=== PATIENT | female | born 1990 | race Caucasian/White ===

== ENCOUNTER 2016-11-03 09:07 | Emergency (ER) | payer OTHER ==
[2016-11-03 09:11] VITALS: O2SAT 100
[2016-11-03 10:07] LABS: BASO % 0.4 % (0.0-2.0); EOS # 0.1 K/uL (0.0-0.7); EOS % 0.9 % (0.0-4.0); HEMATOCRIT 37.2 % (34.0-47.0); LYMPH # 1.9 K/uL (1.0-4.3); LYMPH % 24.2 % (20.0-40.0); MEAN CELL VOLUME 71.2 fL (81.0-99.0); MEAN CORPUSCULAR HEMOGLOBIN 22.3 pg (27.0-31.0); MEAN CORPUSCULAR HGB CONC 31.3 g/dL (33.0-37.0); MEAN PLATELET VOLUME 8.6 fL (7.2-11.7); MONO # 0.3 K/uL (0.0-0.8); MONO % 3.5 % (0.0-10.0); RED CELL DISTRIBUTION WIDTH 16.3 % (11.5-14.5)
[2016-11-03 10:21] LABS: RBC URINE 16 /hpf (0-3); URINE BACTERIA RARE (<OCC); URINE BILIRUBIN NEGATIVE (NEGATIVE); URINE BLOOD 1+ (NEGATIVE); URINE COLOR Yellow (YELLOW); URINE GLUCOSE (UA) 3+ mg/dL (Normal); URINE KETONE TRACE mg/dL (NEGATIVE); URINE LEUKOCYTE ESTERASE NEG Leu/uL (Negative); URINE PROTEIN NEGATIVE (NEGATIVE); URINE UROBILINOGEN NORMAL mg/dL (0.2-1.0); WBC URINE 1 /hpf (0-5)
[2016-11-03 10:33] LABS: CHLORIDE 98 mmol/L (98-107); POTASSIUM 3.6 mmol/L (3.6-5.2); SODIUM 140 mmol/L (132-148)
[2016-11-03 10:36] LABS: BLOOD UREA NITROGEN 11 mg/dL (7-17); CARBON DIOXIDE 22 mmol/L (22-30); GFR AFRICAN-AMERICAN > 60; GLUCOSE,RANDOM 258 mg/dL (65-105)
[2016-11-03 10:37] LABS: CALCIUM 9.7 mg/dl (8.6-10.4)
--- NOTE | 2016-11-03 10:45 | US ---
Indication: Vaginal spotting Comparison: None available Technique: Transvaginal pelvic ultrasound. Findings: 9.1 x 5.1 x 7.2 cm. Anteverted. Cervix length measures approximately 3.3 cm. Small cystic focus presumed to reflect intrauterine gestational sac measures approximately 5 mm, too small for gestational age calculation. No evidence of yolk sac or pole at this time. The right ovary measures 2.6 x 1.6 x 2.1 cm and contains a 0.7 x 0.6 x 0.6 cm anechoic avascular focus consistent with a cyst. The left ovary measures 2.2 x 1.6 x 3.4 cm. Blood flow was demonstrated to both ovaries. Impression: Small cystic focus presumed to reflect intrauterine gestational sac measures approximately 5 mm, too small for gestational age calculation. No evidence of yolk sac or pole at this time. Recommend clinical correlation including quantitative beta HCG. 0.7 x 0.6 x 0.6 cm anechoic avascular focus consistent with a right renal cyst.
[2016-11-03] MEDS ORDERED: Sodium Chloride 0.9% 1,000 ML IV ONE (11:11)
[2016-11-03] MEDS ORDERED: Sodium Chloride 0.9% 1,000 ML ONE (11:16)
--- NOTE | 2016-11-03 11:27 | C.PDOC ---
History Of Present Illness 26 yo female , LNMP 09/13/16, (+) test at home, come in for evaluation of diffuse lower abdominal cramping pain for past days associated with bloody vaginal spotting. Pt sts, pain is worsening over time. Otherwise, pt denies fever, chills, recent illness, sore throat, neck pain, CP, SOB, dyspnea, diaphoresis, palpitation, N/V, UTI sx. Ambulate to ED for evaluation, not in any apparent distress. Time Seen by Provider: 11/03/16 09:20 Chief Complaint (Nursing): Abdominal Pain History Per: Patient Past Medical History Reviewed: Historical Data, Nursing Documentation, Vital Signs Vital Signs: Last Vital Signs Temp 98.3 F 11/03/16 12:20 Pulse 106 H 11/03/16 12:20 Resp 20 11/03/16 12:20 BP 95/62 L 11/03/16 12:20 Pulse Ox 100 11/03/16 12:20 - Medical History PMH: No Chronic Diseases Surgical History: No Surg Hx Family History: States: No Known Family Hx - Social History Hx Alcohol Use: No Hx Substance Use: No - Immunization History Hx Tetanus Toxoid Vaccination: Yes Hx Pneumococcal Vaccination: Yes Review Of Systems Except As Marked, All Systems Reviewed And Found Negative. Constitutional: Negative for: Fever, Chills Eyes: Negative for: Vision Change ENT: Negative for: Throat Pain, Throat Swelling Cardiovascular: Negative for: Chest Pain, Palpitations, Light Headedness Respiratory: Negative for: Cough, Shortness of Breath, Wheezing Gastrointestinal: Positive for: Abdominal Pain. Negative for: Nausea, Vomiting , Diarrhea Genitourinary: Positive for: Vaginal Bleeding. Negative for: Dysuria, Frequency , Incontinence Musculoskeletal: Negative for: Neck Pain, Back Pain Skin: Negative for: Rash Neurological: Negative for: Weakness, Numbness, Altered Mental Status, Headache Physical Exam - Physical Exam Appears: Well, No Acute Distress Skin: Normal Color, Warm, Dry, No Rash Eye(s): bilateral: PERRL Nose: No Flaring Oral Mucosa: Moist Throat: No Drooling Neck: Trachea Midline, Supple Cardiovascular: Rhythm Regular, No JVD Respiratory: No Decreased Breath Sounds, No Accessory Muscle Use, No Rales, No Rhonchi, No Stridor, No Wheezing Gastrointestinal/Abdominal: Soft, Tenderness (mild suprapubic tenderness.), No Organomegaly, No Distention, No Guarding, No Rebound Back: No CVA Tenderness Extremity: No Pedal Edema, No Deformity Neurological/Psych: Oriented x3, Normal Speech ED Course And Treatment - Laboratory Results Result Diagrams: 11/03/16 09:57 11/03/16 09:57 Lab Interpretation: Normal O2 Sat by Pulse Oximetry: 100 Pulse Ox Interpretation: Normal - CT Scan/US Transvaginal US Other Rad Studies (CT/US): Radiology Report Reviewed CT/US Interpretation: atient Name / ID : LOULOU LOPEZ / [id number]. Exam Date : 11/03/2016 09:55:27 ( Approved ). Study Comment : Sex / Age : F / 26Y. Creator : Jennifer Ball MD. Dictator : Window And Siding Craftsman : Concrete Mixer Operator : Jennifer Ball MD. Approver2 : Report Date : 11/03/2016 10: 43:38. My Comment : . Indication: Vaginal spotting. Comparison: None available. Technique: Transvaginal pelvic ultrasound. Findings: 9.1 x 5.1 x 7.2 cm. Anteverted. Cervix length measures approximately 3.3 cm. Small cystic focus presumed to reflect intrauterine gestational sac measures approximately 5 mm, too small for gestational age calculation. No evidence of yolk sac or pole at this time. The right ovary measures 2.6 x 1.6 x 2.1 cm and contains a 0.7 x 0.6 x 0.6 cm anechoic avascular focus consistent with a cyst. The left ovary measures 2.2 x 1.6 x 3.4 cm. Blood flow was demonstrated to both ovaries. Impression: Small cystic focus presumed to reflect intrauterine gestational sac measures approximately 5 mm, too small for gestational age calculation. No evidence of yolk sac or pole at this time. Recommend clinical correlation including quantitative beta HCG. 0.7 x 0.6 x 0.6 cm anechoic avascular focus consistent with a right renal cyst. Progress Note: On re-evaluation, pt is afebrile, hemodynamicaly stable. Non- toxic. AMbulatory in ED with stable gait. Neck: Supple, (-) JVD. Lungs: CTA B /L, BS equal B/L. ABd: benign. Back: (-) CVA tenderness. Diagnostics review, no acute abnormalities except slight hyperglycemia. Pt denies previous hx of DM or gestational DM. Blood type A positive, ab negative. Beta quant c/w with US findings of early 5-6 wks. Results review and discussed with pt. Pt has clinical findings c/w threatened miscarriage. Pt advised and ref. to f/u with OB in 1-2 days for re-eval.,. return if any new changes. Disposition Counseled Patient/Family Regarding: Studies Performed, Diagnosis, Need For Followup, Rx Given - [facility]position [facility] Disposition: HOME/ ROUTINE Disposition Time: 11:33 Condition: STABLE Additional Instructions: Encourage fluids Vitamins Avoid sweet food Follow up with OB in 1-2 days for re-evaluation. Return to ED if any worsening or new changes. Prescriptions: Multivit/Folic Acid/I [ Plus] 1 tab PO DAILY #30 tab Instructions: Threatened Miscarriage (ED), Gestational Diabetes (ED) Forms: [employer] (Guyanese) - Clinical Impression Clinical Impression: Threatened , Gestational diabetes
[2016-11-03 12:21] VITALS: BP 95/62; PULSE 106; RESP 20; TEMP 98.3
== END 2016-11-03 12:30 | disposition home or self-care (01) ==
LOC: C.ER 09:07
DX: O20.0 Threatened abortion (principal); O24.419 Gestational diabetes mellitus in pregnancy, unspecified control; Z3A.00 Weeks of gestation of pregnancy not specified
CPT/HCPCS: 76817; 80048; 81001; 82948; 84702; 84703; 85025; 86850; 86900; 87086; 87491; 87591; 96360; 99285; J7040

== ENCOUNTER 2016-11-03 13:27 | Day surgery (SDC) | payer OTHER ==
--- NOTE | 2016-11-03 13:37 | CP.PCM.HP ---
History of Present Illness - History of Present Illness History of Present Illness: 26 yr lmp 08/18/16 9 weeks by lmp came with c/o brownish discaharge and pain started yesterday.pt was at pmd office and gs sac seen. obhx 2 x pmh diabetes ? med pnv all nkda psh denies soch den abd mild ten ext no edema,no calf ten sse brownish discahge,closed sono gs no ys no fh right small avascular cyst A+ bhcg 6687 10/25 b hcg 4400 progest 4.7 Present on Admission - Present on Admission Any Indicators Present on Admission: No History of DVT/PE: No History of Uncontrolled Diabetes: No Urinary Catheter: No Decubitus Ulcer Present: No Review of Systems - Reproductive: Female Reproductive:Female: Abnormal Vaginal Bleeding Past Patient History - Past Social History Smoking Status: Never Smoked - PSYCHIATRIC Hx Substance Use: No - SURGICAL HISTORY Hx Surgeries: No Meds Allergies/Adverse Reactions: Allergies Allergy/AdvReac Type Severity Reaction Status Date / Time No Known Allergies Allergy Verified 11/03/16 09:14 Physical Exam - Exam Speculum exam: Vaginal Discharge (BROWNISH ) Bimanual exam: NORMAL BIMANUAL EXAM Results - Vital Signs Recent Vital Signs: Last Vital Signs Temp 98.4 F 11/03/16 13:31 Pulse 104 H 11/03/16 13:31 Resp 20 11/03/16 13:31 BP 116/77 11/03/16 13:31 Pulse Ox 97 11/03/16 13:31 Assessment & Plan - Assessment and Plan (Free Text) Assessment: 26 YR at 9weeks missed r/o ectopic preg Plan: plan admit to manager operational fo suction d &c npo/ivf labs OR Aware informed consent. r/a/b discussed
--- NOTE | 2016-11-03 13:49 | C.PDOC ---
History Of Present Illness 26 yo female , LNMP 09/13/16. approximately 6 wks present to ED for re-evaluation of lower abdominal cramping pain associated with vaginal spotting since yesterday. Pt was seen early today and diagnosed with threatened . Pt was seen by OB and sent back to ED for admission to OR for D&C. At present time, pt appears stable, not in any apparent distress. Time Seen by Provider: 11/03/16 13:39 Chief Complaint (Nursing): Abdominal Pain History Per: Patient Past Medical History Reviewed: Historical Data, Nursing Documentation, Vital Signs Vital Signs: Last Vital Signs Temp 98.5 F 11/03/16 15:12 Pulse 92 H 11/03/16 15:12 Resp 20 11/03/16 15:12 BP 118/72 11/03/16 15:12 Pulse Ox 98 11/03/16 15:12 - Medical History PMH: No Chronic Diseases Surgical History: No Surg Hx Family History: States: No Known Family Hx - Social History Hx Alcohol Use: No Hx Substance Use: No - Immunization History Hx Tetanus Toxoid Vaccination: Yes Hx Influenza Vaccination: No Hx Pneumococcal Vaccination: Yes Review Of Systems Except As Marked, All Systems Reviewed And Found Negative. Constitutional: Negative for: Fever, Chills ENT: Negative for: Throat Pain, Throat Swelling Cardiovascular: Negative for: Chest Pain, Palpitations, Edema, Light Headedness Respiratory: Negative for: Cough, Shortness of Breath, Wheezing Gastrointestinal: Positive for: Abdominal Pain. Negative for: Nausea, Vomiting , Diarrhea Genitourinary: Positive for: Vaginal Bleeding. Negative for: Dysuria, Frequency , Incontinence, Hematuria, Vaginal Discharge Musculoskeletal: Negative for: Neck Pain, Back Pain Skin: Negative for: Rash Neurological: Negative for: Weakness, Numbness, Altered Mental Status, Headache Physical Exam - Physical Exam Appears: Well, Non-toxic, No Acute Distress Skin: Normal Color, Warm, Dry, No Rash Eye(s): bilateral: PERRL Nose: No Discharge Oral Mucosa: Moist Throat: No Drooling Neck: Normal ROM, Trachea Midline, Supple Cardiovascular: Rhythm Regular, No JVD Respiratory: No Stridor, No Wheezing Gastrointestinal/Abdominal: Soft, Tenderness (mild suprapubic tenderness), No Distention, No Guarding Back: Normal Inspection Extremity: No Pedal Edema, No Deformity Neurological/Psych: Oriented x3, Normal Speech ED Course And Treatment O2 Sat by Pulse Oximetry: 97 Pulse Ox Interpretation: Normal Progress Note: Dagnostics review from last visit, mild hyeprglycemia, otherwise normal study. Case discussed with DR. Lares and admission to OR requested at this time, IVF hydration. Expalined to patient. Pt agrees with plan. Disposition - Disposition Disposition: HOSPITALIZED Disposition Time: 13:48 Condition: STABLE - Clinical Impression Clinical Impression: Threatened
[2016-11-03] MEDS ORDERED: Sodium Chloride 0.9% 1,000 ML IV ONE (14:00)
[2016-11-03] MEDS ORDERED: Succinylcholine Chloride 20 mg/ml Syr (5 ml) IV ONE (16:36)
[2016-11-03] MEDS ORDERED: Propofol 10 mg/ml Inj (20 ML) ONE ×2 (16:36→17:03)
[2016-11-03] MEDS ORDERED: Midazolam 2 MG/2 ML VIAL ONE (16:36)
[2016-11-03] MEDS ORDERED: Lidocaine Hydrochloride 5 ML INJ ONE (16:36)
[2016-11-03] MEDS ORDERED: cefOXitin IV 1 gm in Dextrose 1 GM/50 ML BAG IVPB ONE (16:47)
[2016-11-03] MEDS ORDERED: Lactated Ringer's 1,000 ML IV ONE ×2 (16:50→17:10)
[2016-11-03] MEDS ORDERED: HYDROmorphone 0.5 mg/0.5 ml ISec IVP PRN (17:16)
[2016-11-03 17:31] VITALS: O2SAT 100
--- NOTE | 2016-11-03 17:36 | PCM.SURG1 ---
Surgeon's Initial Post Op Note - Surgeon's Notes Surgeon: dr becerra Bottle Washer: none Type of Anesthesia: IV Sedation Anesthesia Administered By: dr hill Pre-Operative Diagnosis: 26 yr at 7weeks missed ab Operative Findings: see the op report Post-Operative Diagnosis: same Operation Performed: suction d&c Specimen/Specimens Removed: poc Estimated Blood Loss: EBL {In ML}: 20 Blood Products Given: N/A Drains Used: No Drains Post-Op Condition: Good Date of Surgery/Procedure: 11/03/16 Time of Surgery/Procedure: 18:00
[2016-11-03 18:15] VITALS: TEMP 97.8
[2016-11-03 18:37] VITALS: BP 123/75; PULSE 85; RESP 18
--- NOTE | 2016-11-04 06:12 | OP ---
PROCEDURE DATE: 11/03/2016 PREOPERATIVE DIAGNOSIS: A 26 years old 3, para 2 at 7 weeks, missed . POSTOPERATIVE DIAGNOSIS: A 26 years old 3, para 2 at 7 weeks, missed . SURGEON: Dr. Lares. INFORMATION RESOURCES DIRECTOR SURGEON: Dr. Bennett. ANESTHESIA: IV sedation. ANESTHESIOLOGIST: Dr. Gary Acosta. PROCEDURE PERFORMED: Suction dilation and curettage. COMPLICATIONS: None. ESTIMATED BLOOD LOSS: 20 mL. DESCRIPTION OF PROCEDURE: After informed consent was obtained, the patient was brought to the operating room, placed on the table where IV sedation was given. Once the IV sedation was given, the patient was prepped and draped in the normal sterile fashion. Examination found the uterus to be 7-week size. No pelvic or adnexal masses. A David catheter was done, 50 mL of urine came out. Anterior lip of the cervix was grasped with a tenaculum, gentle dilatation of the cervix was done. A 6-Latvian catheter was used for suction. Then, the 7-Latvian was used. Sharp curettage was done, there were normal products. It was curetted and after that, suction was done again. Then, the tenaculum was taken out of the anterior lip of the cervix. The patient tolerated the procedure well. Lap, sponge, and instrument counts were correct x2. Jaime Lares MD
== END 2016-11-03 18:35 | disposition home or self-care (01) ==
LOC: C.ER 13:27 → C.SDS 14:13
PROVIDERS: ATTEND Obstetrics & Gynecology
DX: O02.1 Missed abortion (principal)
CPT/HCPCS: 59820; 88305; 99285; J1885; J2250; J2405; J2704; J2765; J3010; J7120